=== PATIENT | female | born 1980 | race African-American/Black ===

== ENCOUNTER 2017-07-06 07:26 | Emergency (ER) | payer OTHER ==
[~2017-07-06] VITALS: Ht 167.6 cm; Wt 84.0 kg
[~2017-07-06 07:26] MED LIST: MACR100C PO
[2017-07-06 07:30] VITALS: BP 140/63; PULSE 76; RESP 16; TEMP 98.1; O2SAT 100
[2017-07-06 08:03] LABS: BACTERIA, URINE OCC /hpf; BILIRUBIN, URINE NEG (NEG); BLOOD, URINE SMALL (NEG); GLUCOSE,URINE NEG (NEG); KETONE, URINE NEG (NEG); MUCUS URINE FEW /lpf (OCC); NITRITE,URINE NEG (NEG); SQUAMOUS EPITHELIAL CELL URINE 10 /hpf (0-5); URINE COLOR LIGHT-YELLOW (YELLW/STRAW); URINE LEUKOCYTE ESTERASE LARGE (NEG)
--- NOTE | 2017-07-06 08:03 | PD ---
HPI Chief Complaint: Musculoskeletal Complaint Time Seen by Provider: 07:35 Travel History International Travel<30 days: No Contact w/Intl Traveler<30days: No Traveled to known affect area: No History of Present Illness HPI 36-year-old female presents to the emergency room for evaluation of 2 separate complaints. First complaint is right upper arm pain that has been ongoing for the past 3-4 weeks. Pain has gradually been worsening. States she can no longer lift her arm above her head without pain. Pain radiates down her right arm. She does not do any strenuous activity at work or home. She has not taken anything for symptoms. Denies any paresthesias. Second complaint is lower pelvic cramping and bilateral flank pain that started last night. No associated nausea, vomiting, fever, chills. She denies dysuria but reports urgency and frequency. No abnormal vaginal discharge or bleeding. Last menstrual cycle was the beginning of May. PFSH Past Medical History Autoimmune Disease: No Blood Disorders: No Cancer: No Chemotherapy: No Diminished Hearing: No Glaucoma: No Psychiatric: No Radiation Therapy: No : 1 Para: 1 Past Surgical History AICD: No Genitourinary Surgery: No Pacemaker: No Social History Alcohol Use: Yes (OCCASIONAL) Tobacco Use: Yes (3 CIG A DAY) Substance Use: No Allergies-Medications (Allergen,Severity, Reaction): Coded Allergies: No Known Allergies (Verified Adverse Reaction, Unknown, 07/06/17) Reported Meds & Prescriptions Reported Meds & Active Scripts Active Macrobid (Nitrofurantoin Monohydrate Macrocrystals) 100 Mg Capsule 100 Mg PO BID 7 Days Review of Systems Except as stated in HPI: all other systems reviewed are Neg Physical Exam Narrative GENERAL: Well-nourished, well-developed female no acute distress. Afebrile. Ambulatory. SKIN: Focused skin assessment warm/dry. No erythema or ecchymosis. HEAD: Normocephalic. EYES: No scleral icterus. No injection or drainage. NECK: Supple, trachea midline. No JVD or lymphadenopathy. CARDIOVASCULAR: Regular rate and rhythm without murmurs, gallops, or rubs. RESPIRATORY: Breath sounds equal bilaterally. No accessory muscle use. GASTROINTESTINAL: Abdomen soft, non-tender, nondistended. No rebound tenderness or guarding. No significant bilateral CVA tenderness. MSK: Full range of motion of the right upper extremity. Tenderness to palpation of the right lateral biceps. 2+ radial pulse. Radial, ulnar, and median nerves intact. Data Data Last Documented VS Vital Signs Date Time Temp Pulse Resp B/P (MAP) Pulse Ox O2 Delivery O2 Flow Rate FiO2 07/06/17 07:30 98.1 76 16 140/63 (88) 100 Orders Orders Urinalysis - C+S If Indicated (07/06/17 07:42) Ed Urine Pregnancytest Poc (07/06/17 07:42) Beta Hcg (Quant/Titer) (07/06/17 07:58) Us Pelvis (Ques Pr/Ect)W Trans (07/06/17 ) Ed Discharge Order (07/06/17 09:55) Labs Laboratory Tests Test 07/06/17 07:44 07/06/17 08:00 Urine Color LIGHT-YELLOW Urine Turbidity HAZY Urine pH 7.0 Urine Specific [place] 1.010 Urine Protein NEG mg/dL Urine Glucose (UA) NEG mg/dL Urine Ketones NEG mg/dL Urine Occult Blood SMALL Urine Nitrite NEG Urine Bilirubin NEG Urine Urobilinogen LESS THAN 2.0 MG/DL Urine Leukocyte Esterase LARGE Urine RBC 3 /hpf Urine WBC 7 /hpf Urine Squamous Epithelial Cells 10 /hpf Urine Bacteria OCC /hpf Urine Mucus FEW /lpf Microscopic Urinalysis Comment CULT NOT INDICATED Human Chorionic Gonadotropin, Quant 1518 MIU/ML MDM Medical Decision Making Medical Screen Exam Complete: Yes Emergency Medical Condition: Yes Medical Record Reviewed: Yes Differential Diagnosis Tendinitis, urinary tract infection, ectopic , pyelonephritis, muscle spasm, strain Narrative Course 36-year-old female presents to the emergency room for evaluation of 2 separate complaints. First complaint is right upper extremity pain for the past 3-4 weeks. Second complaint is abdominal cramping that started last night. Patient had no injury to her right arm. Physical exam is unremarkable. She has full range of motion. It is neurovascularly intact. There is no erythema, edema, or ecchymosis. Likely tendinitis. The abdominal cramping is very mild, 2/10 with no associated nausea, vomiting, fever, chills, or urinary symptoms. UA shows some bacteria and WBCs but simple appears very contaminated with 10 squamous cells. Patient was found to have incidental with urine test so subsequent beta-hCG and ultrasound were ordered to evaluate for ectopic . Ultrasound shows gestational sac in the endometrial cavity without evidence of ectopic . She is too early for dates. 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 Discharged with Macrobid for asymptomatic bacteriuria. She understands and agrees to plan. Diagnosis Primary Impression: Tendinitis Additional Impression: Qualified Codes: Z3A.01 - Less than 8 weeks gestation of Referrals: Airframe Design Engineer Primary Care Physician Additional Instructions: Take Tylenol as directed, as needed for pain. Macrobid as directed, until gone. Apply ice or heat to the affected area for 20 minutes at a time. Start [id number] vitamins. Follow-up with a river crossing supervisor. Return for worsening symptoms. Scripts Nitrofurantoin Monohydrate Macrocrystals (Macrobid) 100 Mg Capsule 100 MG PO BID for Infection for 7 Days, #14 CAP 0 Refills Prov: Sera Colindres MD 07/06/17 Disposition: 01 DISCHARGE HOME Condition: Stable Alberta Lopez Jul 06, 2017 08:03
--- NOTE | 2017-07-06 09:51 | RADRPT ---
EXAM DATE/TIME: 07/06/2017 06:57 [facility] COMPARISON: None. INDICATIONS : <<Pelvic cramping.>> LAB(S): Beta-hCG: <<1518>> MEDICAL HISTORY : . SURGICAL HISTORY : None. ENCOUNTER: Initial ACUITY: 1 week PAIN SCORE: 2/10 LOCATION: Bilateral pelvis MEASUREMENTS: UTERUS: <<6.7 x 6.2 x 4.3>> cm ENDOMETRIAL STRIPE: 11 mm RIGHT OVARY: <<2.5 x 1.1 x 1.1>> cm LEFT OVARY: <<3.5 x 2.9 x 1.4>> cm FREE FLUID: Yes CROWN RUMP LENGTH: <<not seen>> = WKS DAYS FHR: <<not seen>> BPM FINDINGS: There is a tiny hypoechoic area in the endometrial cavity, most characteristic of a small gestational sac with measurements to small for accurate dating. No yolk sac or pole. Trace free fluid in t he pelvis. Right ovary unremarkable. Complex 2 cm left ovarian cyst, possibly a corpus luteum cyst. No other adn exal mass identified. CONCLUSION: 1. Questionable small gestational sac in the endometrial cavity with measurements too small for accur ate dating. Complex 2 cm left ovarian cyst. No other adnexal mass. Trace free fluid. Jamin Osman MD on July 06, 2017 at 9:45 Board Certified Radiologist. This report was verified electronically.
[2017-07-06] MEDS ORDERED: MACR100C2 PO (09:57)
== END 2017-07-06 10:02 | disposition home or self-care (01) ==
LOC: NEPD 07:26
DX: M77.9 Enthesopathy, unspecified (principal); F17.210 Nicotine dependence, cigarettes, uncomplicated; Z33.1 Pregnant state, incidental; Z3A.01 Less than 8 weeks gestation of pregnancy
CPT/HCPCS: 76700; 76817; 81001; 84702; 84703; 99284